=== PATIENT | female | born 1970 | race Hispanic/Latino ===

== ENCOUNTER → 2020-03-19 | Outpatient (CLI) | payer BC | LOC: GMA MATASK 14:36 | PROVIDERS: ATTEND Family Medicine | DX: R30.0 Dysuria (principal); E16.2 Hypoglycemia, unspecified ==

== ENCOUNTER → 2020-04-24 | Outpatient (CLI) | payer BC | LOC: GMA MATASK 17:34 | PROVIDERS: ATTEND Family Medicine | DX: R22.9 Localized swelling, mass and lump, unspecified (principal) ==

== ENCOUNTER → 2020-05-14 | Outpatient (CLI) | payer BC ==
--- NOTE | 2020-05-14 15:07 | US ---
US HEAD NECK SOFT TISSUE CLINICAL STATEMENT:50 years Female LOCALIZED SWELLING, MASS AND LUMP. COMPARISON: None TECHNIQUE: Transcutaneous scanning, grayscale and Doppler modes. FINDINGS: Scanning of the region of interest right lateral neck. No dominant solid mass, no distinct cysts, no parenchymal fluid collection and no large calcifications. Normal vascularity. Similar findings in the region of palpation on the left lateral neck. Left thyroid lobe: 5.1 x 2.7 x 2.8 cm. Right thyroid lobe: 3.6 x 2.2 x 2.2 cm. Isthmus: 2.1 mm. Nodule 1: Size: 3.2 x 3.6 x 2.2 cm Location: Right Mid Composition: solid or almost completely solid: 2 points. Vascular margins. Echogenicity: hyperechoic: 1 point Shape: wider than tall: 0 points Margins: Smooth. Echogenic foci: None. ACR Total Points: 3; ACR TI-RADS risk category: TR3 - mildly suspicious nodule. Nodule 2: Size: 3.9 x 2.9 x 2.7 cm Location: Left Mid Composition: solid or almost completely solid: 2 points Echogenicity: isoechoic: 1 point Shape: wider than tall: 0 points Margins: smooth: 0 points Echogenic foci: None. ACR Total Points: 3; ACR TI-RADS risk category: TR3 - mildly suspicious nodule. IMPRESSION: 1. Nodule 1: ACR TI-RADS 2017 Category TR3. Recommend: Ultrasound-guided fine needle aspiration. Recommendations based upon [employer] [facility] Best Practice recommendations and ACR TI-RADS 2017 guidelines. Please see below*. 2. Nodule 2: ACR TI-RADS 2017 Category TR3. Recommend: Ultrasound-guided fine needle aspiration 3. Soft tissue in the region of interest showing no abnormalities. *ACR TI-RADS 2017 Recommendations for imaging follow-up of nodules (baseline study): TR1: No FNA or follow up TR2: No FNA or follow up TR3: FNA if >/= 2.5 cm, follow up if 1.5 - 2.4 cm in 1, 3, and 5 years TR4: FNA if >/= 1.5 cm, follow up if 1.0 - 1.4 cm in 1, 2, 3, and 5 years TR5: FNA if >/= 1.0 cm, follow up if 0.5 - 0.9 cm every year for 5 years ACR TI-RADS recommends that no more than two nodules with the highest ACR TI-RADS total point should be biopsied and no more than four nodules should be followed. These recommendations do not apply to patients with increased risk for thyroid cancer or patients with symptomatic thyroid disease. Electronically signed by: Richard De MD 05/14/2020 3:05 PM [facility]
== END ==
LOC: US 10:50
PROVIDERS: ATTEND Family Medicine
DX: E04.1 Nontoxic single thyroid nodule (principal)